=== PATIENT | male | born 1995 | race African-American/Black ===

== ENCOUNTER 2025-07-19 01:38 | Emergency (ER) | payer BC ==
[~2025-07-19] VITALS: Ht 182.9 cm; Wt 91.0 kg
[2025-07-19 01:54] VITALS: BP 128/56; PULSE 65; RESP 18; TEMP 36.8; O2SAT 100; O2SAT 98
[2025-07-19] MEDS ORDERED: CEPH500C2 MT (02:24)
[2025-07-19] MEDS ORDERED: CALA177S9 TP (02:24)
[2025-07-19] MEDS ORDERED: HYDR453.3 TP (02:24)
== END 2025-07-19 02:37 | disposition home or self-care (01) ==
LOC: ER 01:38
DX: L23.7 Allergic contact dermatitis due to plants, except food (principal); L03.90 Cellulitis, unspecified; Z90.89 Acquired absence of other organs; Z79.899 Other long term (current) drug therapy
CPT/HCPCS: 99283